=== PATIENT | male | born 1965 | race African-American/Black ===

== ENCOUNTER 2020-11-26 09:53 | Day surgery (SDC) | payer OTHER ==
[~2020-11-26 09:53] MED LIST: SODIUM CHLORIDE 0.9% 1000 ML 1,000 ML IV SCH
--- NOTE | 2020-11-26 11:28 | Anesthesia Consultation ---
Anesthesia Consult and Med Hx Date of service: 11/26/20 - Airway Anesthetic Teeth Evaluation: Good ROM Head & Neck: Adequate Mental/Hyoid Distance: Adequate Mallampati Class: Class II Intubation Access Assessment: Probably Good - Pulmonary Exam CTA: Yes - Cardiac Exam Cardiac Exam: RRR - Pre-Operative Health Status ASA Pre-Surgery Classification: ASA2 Proposed Anesthetic Plan: MAC - Pulmonary Hx Smoking: No Hx Asthma: No Hx Sleep Apnea: No - Cardiovascular System Hx Hypertension: Yes (diagnosed with prehypertension - No meds) Hx Coronary Artery Disease: No - Central Nervous System Hx Neuromuscular Disorder: No - Gastrointestinal Hx Gastroesophageal Reflux Disease: Yes (Well controlled) - Endocrine Hx Renal Disease: No Hx Cirrhosis: No Hx Non-Insulin Dependent Diabetes: No Hx Thyroid Disease: No - Hematic Hx Anemia: No - Other Systems Hx Alcohol Use: No Hx Substance Use: No Hx Cancer: No Hx Obesity: No - Additional Comments Anesthesia Medical History Comments: No hx of anesthetic complications.
--- NOTE | 2020-11-26 11:29 | Anesthesia Day of Surgery ---
Anesthesia Day of Surgery - Day of Surgery Patient Examined: Yes Patient H&P Reviewed: Yes Patient is NPO: Yes
[2020-11-26] MEDS ORDERED: LIDOCAINE MPF (2%) 20 MG/1 ML VIAL 5 ML ONE (11:53)
[2020-11-26] MEDS ORDERED: propofoL 200 MG/20 ML VIAL IV ONE ×3 (11:53→12:16)
--- NOTE | 2020-11-26 12:36 | Short Stay Summary ---
Short Stay Documentation Date of service: 11/26/20 Narrative H&P: The patient presents for his first screening colonoscopy and for EGD to evaluate chronic GERD. - History Past Medical History: GERD Past Surgical History: No surgical history Social history: no significant social history - Allergies and Medications Current Medications: Allergies No Known Allergies Allergy (Unverified 11/21/20 13:06) Home Medications Medication Instructions Recorded Confirmed Last Taken Type Omeprazole 11/21/20 Unknown History Active Medications Sodium Chloride (Nacl 0.9% 1000 Ml) 1,000 mls @ 50 mls/hr IV DIRECT GERALDO - Physical exam General appearance: no acute distress, well-nourished Integumentary: no rash, no growths, no abnormal pigmentation HEENT: Atraumatic, PERRLA, EOMI, Mucous membr. moist/pink Lungs: Clear to auscultation, Normal air movement Breasts: deferred Heart: Regular rate, Normal S1, Normal S2, No murmurs Gastrointestinal: normoactive bowel sounds, no tenderness, no distended, no masses, no guarding, no organomegaly, no obese Male Genitourinary: deferred Rectal Exam: normal exam-external/orifice, normal rectal tone, no mass Extremities: no ischemia, pulses intact, pulses symmetrical, No edema, normal temperature, normal color, Full ROM Neurological: Normal gait, Normal speech, Strength at 5/5 X4 ext, Normal tone - Brief post op/procedure progress note Date of procedure: 11/26/20 Findings: see dictations Estimated blood loss: none Pathology: list (1. biopsies of the distal esophagus 2.cecal polyps) Specimen disposition: to lab Condition: stable - Disposition Condition at discharge: Good Disposition: 01 HOME / SELF CARE / HOMELESS - Discharge Diagnoses (1) GERD (gastroesophageal reflux disease) Status: Acute (2) Colon cancer screening Status: Acute
--- NOTE | 2020-11-26 12:40 | Operative Report ---
Operative Report Operative Report: Date of procedure: 11/26/2020 Procedure: Esophagogastroduodenoscopy with biopsies of the distal esophagus Preprocedure diagnosis: Chronic established gastroesophageal reflux disease rule out Rey's. Post procedure diagnosis: Distal esophagitis, possible Rey's. Medium size hiatus hernia. Endoscopist: Dr. Borges Anesthesia: Monitored anesthesia care per anesthesia department Medications: Propofol per anesthesia Estimated blood loss: 0 After careful discussion of the nature and purpose of the procedure as well as details the technique risks benefits and alternatives consent was obtained. The patient was placed in the left lateral decubitus position and medicated per anesthesia. The tip of the [employer] EQ 570 video scope was passed per orum under direct vision into the esophagus and advanced into the stomach and descending duodenum. The descending duodenum the duodenal bulb and pylorus were symmetrical and normal. The scope was withdrawn into the stomach and the stomach then gently insufflated with air. The antrum was normal. The stomach was further insufflated and the scope was then retroflexed and partially withdrawn. The cardia, fundus, and body of the stomach were within normal limits and easily distensible.The scope was then withdrawn in the forward position. A medium size hiatus hernia was present. The esophagogastric junction was at 38 cm. There were 2 inflamed tongues approximately 1.5 to 2 cm in length consistent with reflux esophagitis. Biopsies were taken to exclude Rey's. The esophageal body was normal throughout. The procedure was was well tolerated and the patient was observed in recovery. Impressions: #1 medium size hiatus hernia. #2 moderate distal esophagitis. Plan: Await biopsies. Increased acid suppression for better control of reflux. Electronically signed: Pablito Borges MD
--- NOTE | 2020-11-26 12:41 | Operative Report ---
Operative Report Operative Report: Date of procedure: 11/26/2020 Preprocedure diagnosis: Colon cancer screening, average risk profile. No prior studies. Post procedure diagnosis: 4 mm cecal polyp Procedure: Colonoscopy to the cecum with cold snare polypectomy. Endoscopist: Dr. Borges Anesthesia: Monitored anesthesia care per anesthesia department Estimated blood loss: 0 Medications: Monitored anesthesia care. See separate report by anesthesia for details. After careful discussion of the nature and purpose of the procedure as well as details of the technique risks benefits and alternatives the patient gave consent. Please see recent history and physical from the office. The patient was placed in the left lateral decubitus position and medicated per anesthesia. A rectal exam was performed sphincter tone was normal there were no masses palpable. The [employer] 570 scope was passed transanally and advanced under continuous direct vision without difficulty to the cecum. The colon was well prepared. The cecum revealed a 4 mm sessile polyp. The polyp was removed with a cold snare and retrieved by suction. The ascending colon was normal and on forward and retroflexed views. The transverse colon, descending colon, and sigmoid colon were normal. The rectum was normal on forward and retroflexed views. The procedure was well-tolerated overall and the patient was observed in recovery. Conclusions: Diminutive cecal polyp, otherwise normal colon. Plan: Await pathology. Repeat colonoscopy in 5 to 10 years depending upon pathology. Signed electronically: Pablito Borges M.D.
[2020-11-26 12:53] VITALS: BP 123/71
--- NOTE | 2020-11-26 15:03 | Post Anesthesia Evaluation ---
- Post Anesthesia Evaluation Patient Participated: Yes Airway Patent: Yes Stable Respiratory Function: Yes Nausea/Vomiting: No Temp > 96.8F: Yes Pain Manageable: Yes Adequeate Hydration: Yes Anesthesia Complications: No
== END 2020-11-26 13:30 | disposition home or self-care (01) ==
LOC: GIO 09:53
PROVIDERS: ATTEND Internal Medicine Gastroenterology
DX: Z12.11 Encounter for screening for malignant neoplasm of colon (principal); K21.00 Gastro-esophageal reflux disease with esophagitis, without bleeding; D12.0 Benign neoplasm of cecum; K44.9 Diaphragmatic hernia without obstruction or gangrene; I10 Essential (primary) hypertension; Z79.899 Other long term (current) drug therapy; Z98.890 Other specified postprocedural states
CPT/HCPCS: 43239; 45385; 88305; J2704; J7030